=== PATIENT | female | born 1950 | race Caucasian/White ===

== ENCOUNTER 2017-03-02 18:59 | Emergency (ER) | payer MEDICARE, OTHER ==
[~2017-03-02] VITALS: Ht 165.1 cm; Wt 107.0 kg
[2017-03-02 19:53] VITALS: Ht 165.1 cm; Wt 107.0 kg
[2017-03-02] MEDS ORDERED: hydrALAzine 20 MG INJ IV ONE (22:30)
--- NOTE | 2017-03-02 22:50 | RADRPT ---
PROCEDURE: XR Chest. CLINICAL INDICATION: Cough. Headache. TECHNIQUE: Single frontal view. COMPARISON: 02/13/2013. FINDINGS: The lungs are clear. The heart size is normal. There is calcification in the aorta consistent with atherosclerosis. There is no pleural effusion. There is no pneumothorax. IMPRESSION: 1. Atherosclerosis. 2. Otherwise normal chest radiograph. 3. No change from 02/13/2013. RPTAT: QQ .Jose Palacio MD, MD Date Time Electronically viewed and signed by .Jose Palacio MD, MD on 03/02/2017 22:50 .R/
[2017-03-02 23:01] LABS: BASOPHIL # 0.1 10^3/ul (0.0-0.1); BASOPHILS % 0.9 % (0.0-2.0); EOSINOPHILS # 0.3 10^3/ul (0.0-0.5); EOSINOPHILS % 3.4 % (0.0-7.0); HEMATOCRIT 43.5 % (37.0-47.0); HEMOGLOBIN 14.1 g/dl (12.0-16.0); LYMPHOCYTES # 2.5 10^3/ul (0.8-2.9); MEAN CORPUSCULAR HEMOGLOBIN 28.9 pg (29.0-33.0); MEAN CORPUSCULAR HGB CONC 32.4 g/dl (32.0-37.0); MEAN CORPUSCULAR VOLUME 89.1 fl (82.0-101.0); MEAN PLATELET VOLUME 12.4 fl (7.4-10.4); MONOCYTE # 0.8 10^3/ul (0.3-0.9); MONOCYTES % 7.7 % (0.0-11.0); NEUTROPHIL # 6.3 10^3/ul (1.6-7.5); NEUTROPHILS % 62.6 % (39.0-77.0); PLATELET COUNT 272 10^3/UL (140-415); RED BLOOD COUNT 4.88 10^6/ul (4.20-5.40); RED CELL DISTRIBUTION WIDTH 13.2 % (11.5-14.5); WHITE BLOOD COUNT 10.1 10^3/ul (4.8-10.8)
[2017-03-02 23:18] LABS: INR 0.95; PROTIME 12.7 Sec (12.2-14.2)
[2017-03-02 23:19] LABS: PARTIAL THROMBOPLASTIN TIME 41.5 Sec (25.0-35.0)
[2017-03-02 23:25] LABS: ANION GAP 14 (8-16); BLOOD UREA NITROGEN 18 mg/dl (7-20); CALCIUM 9.9 mg/dl (8.4-10.2); CARBON DIOXIDE 26 mmol/L (21-31); CHLORIDE 106 mmol/L (97-110); CREATININE 0.82 mg/dl (0.44-1.00); GLUCOSE 103 mg/dl (70-220); SODIUM 142 mmol/L (135-144)
[2017-03-02 23:37] LABS: TROPONIN-I < 0.012 ng/ml (0.00-0.12)
--- NOTE | 2017-03-03 00:06 | RADRPT ---
PROCEDURE: CT BRAIN WITHOUT CONTRAST CLINICAL INDICATION: 66-year-old female with headaches. TECHNIQUE: The study was performed utilizing [employer] VCT 64-slice CT scanner. Direct axial sections were obtained from the foramen magnum to the vertex without the use of intravenous contrast material. Sagittal and coronal reformations were obtained. One or more of the following dose reduc tion techniques were utilized: automated exposure control, adjustment of the mA and/or kV according to patient's size or use of iterative reconstruction technique. The images were viewed on a PACS w orkstation. CTD/vol = 45.0 mGy; Total Exam DLP = 720.2 mGy-cm. COMPARISON: None. FINDINGS: There is mild prominence of the sulci and cisternal spaces consistent with diffuse volume loss which is somewhat more prominent within the left parietal cortical region. Otherwise, the ventricles have a normal shape and position. There is no evidence for mass effect or midline shift. There are mild calcifications within the intracranial carotid arteries bilaterally. There is no evidence for acut e intra or extra-axial blood. The bony calvarium is intact. The visualized paranasal sinuses and mas toid air cells are without significant abnormal soft tissue. IMPRESSION: 1. Mild diffuse volume loss. 2. Vascular calcifications. .Edgar Rivera MD, Date Time Electronically viewed and signed by .Edgar Rivera MD, MD on 03/03/2017 00:06 .Floyd/
[2017-03-03 00:43] VITALS: BP 148/73; PULSE 106; RESP 14; TEMP 98.7
[2017-03-03] MEDS ORDERED: HYDR-3672 PO (01:18)
--- NOTE | 2017-03-03 01:22 | ERD ---
ER Documentation Chief Complaint Date/Time DATE: 03/03/17 TIME: 01:19 Chief Complaint headache, blurry vision, saw a PMD never took meds prescribed by MD HURLEY This is a very pleasant 66-year-old female comes in with a headache blurry vision for the past 2-3 days. Patient has a history of high blood pressure but is been off her meds for the past 6 months. Denies any chest pain. Denies any focal neurological complaints. Denies any other current issues. Headache is mild to moderate in intensity with no exacerbating or alleviating factors ROS All systems reviewed and are negative except as per history of present illness. Medications Home Meds Active Scripts Hydralazine Hcl* (Hydralazine Hcl*) 50 Mg Tab, 50 MG PO Q6, #120 TAB Prov:GARFIELD STARKSAntonio 03/03/17 Allergies Allergies: Coded Allergies: No Known Drug Allergies (Verified Allergy, Mild, 02/13/13) PMhx/Soc Medical and Surgical Hx: pt denies Surgical Hx History of Surgery: No Anesthesia Reaction: No Hx Neurological Disorder: No Hx Respiratory Disorders: No Hx Cardiac Disorders: Yes (HTN) Hx Psychiatric Problems: No Hx Miscellaneous Medical Probl: No Hx Alcohol Use: No Hx Substance Use: No Hx Tobacco Use: No Smoking Status: Unknown if ever smoked Physical Exam Vitals Vital Signs Date Time Temp Pulse Resp B/P Pulse Ox O2 Delivery O2 Flow Rate FiO2 03/03/17 00:43 98.7 106 14 148/73 100 Room Air 03/02/17 19:53 98.7 116 20 207/101 98 Physical Exam Const: [] Head: Atraumatic Eyes: Normal Conjunctiva ENT: Normal External Ears, Nose and Mouth. Neck: Full range of motion..~ No meningismus. Resp: Clear to auscultation bilaterally Cardio: Regular rate and rhythm, no murmurs Abd: Soft, non tender, non distended. Normal bowel sounds Skin: No petechiae or rashes Back: No midline or flank tenderness Ext: No cyanosis, or edema Neur: Awake and alert Psych: Normal Mood and Affect Result Diagram: 03/02/17222003/02/171 Results 24 hrs Laboratory Tests Test 03/02/17 22:21 White Blood Count 10.110^3/ul Red Blood Count 4.8810^6/ul Hemoglobin 14.1g/dl Hematocrit 43.5% Mean Corpuscular Volume 89.1fl Mean Corpuscular Hemoglobin 28.9pg Mean Corpuscular Hemoglobin Concent 32.4g/dl Red Cell Distribution Width 13.2% Platelet Count 81829^3/UL Mean Platelet Volume 12.4fl Neutrophils % 62.6% Lymphocytes % 25.0% Monocytes % 7.7% Eosinophils % 3.4% Basophils % 0.9% Nucleated Red Blood Cells % 0.0/100WBC Neutrophils # 6.310^3/ul Lymphocytes # 2.510^3/ul Monocytes # 0.810^3/ul Eosinophils # 0.310^3/ul Basophils # 0.110^3/ul Nucleated Red Blood Cells # 0.010^3/ul Prothrombin Time 12.7Sec Prothrombin Time Ratio 1.0 INR International Normalized Ratio 0.95 Activated Partial Thromboplast Time 41.5Sec Sodium Level 142mmol/L Potassium Level 4.0mmol/L Chloride Level 106mmol/L Carbon Dioxide Level 26mmol/L Anion Gap 14 Blood Urea Nitrogen 18mg/dl Creatinine 0.82mg/dl Glucose Level 103mg/dl Calcium Level 9.9mg/dl Troponin I < 0.012ng/ml Current Medications Medications (Trade) Dose Ordered Sig/David Route PRN Reason Start Time Stop Time Status Last Admin Dose Admin Hydralazine HCl (Apresoline) 20 mg ONCE ONCE IV 03/02/17 22:30 03/02/17 22:31 DC 03/02/17 22:41 Procedures/MDM EKG: Rate/Rhythm: [Normal Sinus Rhythm] QRS, ST, T-waves: [No changes consistent w/ acute ischemia] Impression: [No evidence of ischemia or arrhythmia] Chest X-ray 1V Interpreted by me: Soft Tissue: No acute abnormalities Bones: No acute abnormalities Mediastinum/Cardiac Silhouette/Lungs: [No acute abnormalities] Patient's blood pressure was elevated (>120/80) but appears stable without evidence of hypertension emergency or urgency. The patient was counseled about the risks of hypertension and urged to pursue outpatient monitoring and therapy within a week with their primary care physician. Patient's neurologic symptoms have stabilized while they have been evaluated in the department and are appropriate for outpatient work up. No e/o meningitis, intracranial bleed, seizure, stroke. Departure Diagnosis: Primary Impression: Hypertensive urgency, malignant Additional Impression: Headache Headache type: unspecified Headache chronicity pattern: unspecified pattern Intractability: not intractable Qualified Code: R51 - Nonintractable headache, unspecified chronicity pattern, unspecified headache type Condition: Stable Patient Instructions: Hypertension, Established, Out Of Control GARFIELD STARKS Mar 03, 2017 01:22
== END 2017-03-03 01:21 | disposition home or self-care (01) ==
LOC: E/R 18:59
DX: I16.0 Hypertensive urgency (principal); I10 Essential (primary) hypertension
CPT/HCPCS: 36415; 70450; 71010; 80048; 84484; 85025; 85610; 85730; 96374; 99285; J0360

== ENCOUNTER 2017-10-02 02:29 | Emergency (ER) | END 2017-10-02 05:42 | disposition home or self-care (01) ==

== ENCOUNTER 2018-10-13 12:16 | Emergency (ER) | payer MEDICARE, OTHER ==
[~2018-10-13] VITALS: Ht 165.1 cm; Wt 102.1 kg
[~2018-10-13 12:16] MED LIST: AMLO-145; HYDR-3672 PO; LOSA1TAB25
[2018-10-13 12:21] VITALS: Ht 165.1 cm; Wt 102.1 kg
[2018-10-13] MEDS ORDERED: NITROGLYCERIN 2% 1 GM OINT PKT TD STA (13:24)
[2018-10-13] MEDS ORDERED: ASPIRIN 81 MG TAB PO STA (13:24)
[2018-10-13] MEDS ORDERED: NITROGLYCERIN (SL) 0.4 MG TAB SL PRN (13:30)
[2018-10-13] MEDS ORDERED: AMLO5TAB4 PO (14:25)
[2018-10-13] MEDS ORDERED: LOSA1TAB25 PO (14:26)
[2018-10-13] MEDS ORDERED: METF500T24 PO (14:26)
[2018-10-13] MEDS ORDERED: HYDR-3672 PO (14:27)
[2018-10-13 17:23] VITALS: BP 143/68; PULSE 101; RESP 20
--- NOTE | 2018-10-13 18:36 | ERD ---
ER Documentation Chief Complaint Chief Complaint c/o chest pain since last night, also c/o SOB HPI Patient is a 67-year-old female with hypertension and diabetes who presents with chest pain. She said that her sugars have been high for 1 month and that last night she had bilateral shoulder pain and then midsternal chest pain which she describes as "severe". She said that her blood pressure was "218/210". She said that she felt uncomfortable and had shortness of breath as well. This continued today. Upon review of old medical records this is the patient's seventh visit to the ER since 2008. ROS All systems reviewed and are negative except as per history of present illness. Medications Home Meds Reported Medications Hydralazine Hcl* (Hydralazine Hcl*) 50 Mg Tab, 50 MG PO Q6H, #60 TAB 10/13/18 Metformin Hcl* (Metformin Hcl*) 500 Mg Tablet, 500 MG PO WITH BREAKFAST DINNE, #60 TAB 10/13/18 Losartan-Hydrochlorothiazide (Losartan-HCTZ) 100-25 Mg Tab, 1 TAB PO DAILY, TAB 10/13/18 Amlodipine Besylate* (Norvasc*) 5 Mg Tablet, 5 MG PO DAILY, TAB 10/13/18 Discontinued Reported Medications Amlodipine Besylate* (Amlodipine Besylate*) 5 Mg Tablet, 1 DAILY 10/02/17 Losartan-Hydrochlorothiazide (Losartan-HCTZ) 100-25 Mg Tab, 1 DAILY 10/02/17 Discontinued Scripts Hydralazine Hcl* (Hydralazine Hcl*) 50 Mg Tab, 50 MG PO Q6, #120 TAB Prov:GARFIELD STARKS 03/03/17 Allergies Allergies: Coded Allergies: No Known Drug Allergies (Verified Allergy, Mild, 10/13/18) PMhx/Soc History of Surgery: No Anesthesia Reaction: No Hx Neurological Disorder: No Hx Respiratory Disorders: No Hx Cardiac Disorders: Yes (HTN) Hx Psychiatric Problems: No Hx Miscellaneous Medical Probl: No Hx Alcohol Use: No Hx Substance Use: No Hx Tobacco Use: No Smoking Status: Never smoker FmHx Family History: coronary disease Physical Exam Vitals Vital Signs Date Temp Pulse Resp B/P (MAP) Pulse Ox O2 O2 Flow FiO2 Time Delivery Rate 10/13/18 98.6 101 20 143/68 99 Room Air 17:23 (93) 10/13/18 98.6 101 18 147/75 100 Room Air 15:23 (99) 10/13/18 Nasal 1 13:35 Cannula 10/13/18 98.5 116 22 181/80 100 12:21 (113) Physical Exam Const: No acute distress Head: Atraumatic Eyes: Normal Conjunctiva ENT: Normal External Ears, Nose and Mouth. Neck: Full range of motion. No meningismus. Resp: Clear to auscultation bilaterally Cardio: Regular rate and rhythm, no murmurs Abd: Soft, non tender, non distended. Normal bowel sounds Skin: No petechiae or rashes Back: No midline or flank tenderness Ext: No cyanosis, or edema Neur: Awake and alert Psych: Normal Mood and Affect Result Diagram: 10/13/18 1342 10/13/18 1342 Results 24 hrs Laboratory Tests Test 10/13/18 13:37 10/13/18 13:42 Bedside Glucose 131 mg/dL White Blood Count 12.4 10^3/ul Red Blood Count 4.86 10^6/ul Hemoglobin 13.8 g/dl Hematocrit 43.0 % Mean Corpuscular Volume 88.5 fl Mean Corpuscular Hemoglobin 28.4 pg Mean Corpuscular Hemoglobin Concent 32.1 g/dl Red Cell Distribution Width 13.4 % Platelet Count 329 10^3/UL Mean Platelet Volume 11.4 fl Immature Granulocytes % 0.300 % Neutrophils % 75.1 % Lymphocytes % 16.0 % Monocytes % 6.2 % Eosinophils % 1.7 % Basophils % 0.7 % Nucleated Red Blood Cells % 0.0 /100WBC Immature Granulocytes # 0.040 10^3/ul Neutrophils # 9.3 10^3/ul Lymphocytes # 2.0 10^3/ul Monocytes # 0.8 10^3/ul Eosinophils # 0.2 10^3/ul Basophils # 0.1 10^3/ul Nucleated Red Blood Cells # 0.0 10^3/ul Sodium Level 140 mmol/L Potassium Level 4.0 mmol/L Chloride Level 102 mmol/L Carbon Dioxide Level 27 mmol/L Anion Gap 11 Blood Urea Nitrogen 21 mg/dl Creatinine 0.74 mg/dl Est Glomerular Filtrat Rate mL/min > 60 mL/min Glucose Level 129 mg/dl Calcium Level 9.9 mg/dl Troponin I < 0.012 ng/ml Current Medications Medications Dose Sig/David Start Time Status Last (Trade) Ordered Route PRN Stop Time Admin Dose Reason Admin Aspirin 162 mg ONCE STAT 10/13/18 DC 10/13/18 (Aspirin) PO 13:24 14:05 10/13/18 13:25 1 inch ONCE STAT 10/13/18 DC 10/13/18 Nitroglycerin TD 13:24 14:05 10/13/18 13:25 (Nitroglyceri n 2% Oint) 1 tab Q5M UP TO 3 10/13/18 DC Nitroglycerin DOSES PRN 13:30 SL .CHEST 10/13/18 17:24 (Nitroglyceri PAIN n (Sl Tab) 0.4 Mg) Procedures/MDM EKG read by me: Rate/Rhythm: Regular rate and rhythm at a normal rate Intervals: Normal Impression: No evidence of ischemia or arrhythmia Chest x-ray negative per radiology. Patient is a 67-year-old female with multiple cardiac risk factors who presents with chest pain or shortness of breath. Laboratory studies were basically normal and EKG and chest x-ray were done. She was given aspirin and nitroglycerin. I am concerned for potential acute coronary syndrome. I doubt pneumonia, pneumothorax, pulmonary embolism, or aortic dissection. I wanted to admit the patient to the hospital but she is refusing admission at this time. She is going to leave AGAINST MEDICAL ADVICE. She understands the risk of le aving including myocardial infarction and . She should follow-up with her doctor within 24 hours for reevaluation. Departure Diagnosis: Primary Impression: Chest pain Chest pain type: unspecified Qualified Codes: R07.9 - Chest pain, unspecified Condition: Fair Patient Instructions: Chest Pain, Uncertain Cause Referrals: MITCH SAUCEDO MD (PCP) Additional Instructions: Call your primary care doctor TOMORROW for an appointment during the next 1-2 days.See the doctor sooner or return here if your condition worsens before your appointment time. JULIO OGDEN MD October 13, 2018 18:36
== END 2018-10-13 17:24 | disposition left against medical advice (07) ==
LOC: E/R 12:16
DX: R07.9 Chest pain, unspecified (principal); I10 Essential (primary) hypertension; E11.9 Type 2 diabetes mellitus without complications; Z79.84 Long term (current) use of oral hypoglycemic drugs
CPT/HCPCS: 36415; 71045; 80048; 82962; 84484; 85025; 93005